=== PATIENT | male | born 1945 | race Caucasian/White ===

== ENCOUNTER → 2020-07-05 | Outpatient (CLI) | payer MEDICARE, OTHER ==
[~2020-07-05] MED LIST: ECOTRIN81 MG PO; ELIQUIS 5 MG TAB5 MG PO; FISH OIL 1,2001 EACH PO; IMDUR ER TAB 6060 MG PO; LOPRESSOR 50 MG50 MG PO; NITROSTAT0.4 MG SL; PLAVIX 75 MG TA75 MG PO; PROTONIX40 MG PO; RANEXA1000 MG PO; VITAMIN C 500500 MG PO; VITAMIN D-40400 UNIT PO
== END | disposition home or self-care (01) ==
LOC: RAD 10:00
PROC: BP281ZZ Computerized Tomography (CT Scan) of Right Shoulder using Low Osmolar Contrast (ICD-10-PCS; principal; 2020-07-05)
DX: M75.121 Complete rotator cuff tear or rupture of right shoulder, not specified as traumatic (principal); Z88.5 Allergy status to narcotic agent
CPT/HCPCS: 36415; 73040; 73201; Q9962